=== PATIENT | female | born 1960 | race American Indian/Alaskan Native ===

== ENCOUNTER 2016-11-26 00:46 | Emergency (ER) | payer OTHER ==
[2016-11-26 00:59] VITALS: BP 139/85
[2016-11-26] MEDS ORDERED: TYLENOL PO ONE (00:59)
[2016-11-26] MEDS ORDERED: TYLENOL ONE (00:59)
[2016-11-26 01:38] LABS: Basophils % (Auto) 0.5 % (0.0-1.8); Eosinophils % (Auto) 6.1 % (0.0-4.3); Hematocrit 41.2 % (30.3-42.9); Hemoglobin 13.8 gm/dl (10.1-14.3); Mean Corpuscular HGB Conc 33 % (30-34); Mean Corpuscular Hemoglobin 30 pg (28-32); Mean Corpuscular Volume 90 fl (79-97); Platelet Count 267 K/mm3 (140-440); Red Blood Count 4.59 M/mm3 (3.65-5.03); Red Cell Distribution Width 14.2 % (13.2-15.2); White Blood Count 5.9 K/mm3 (4.5-11.0)
[2016-11-26 02:00] LABS: Alanine Aminotransferase 24 units/L (7-56); Albumin 4.2 g/dL (3.9-5); Albumin/Globulin Ratio 1.1 %; Alkaline Phosphatase 107 units/L (35-129); Anion Gap 22 mmol/L; BUN/Creatinine Ratio 7.77; Blood Urea Nitrogen 7 mg/dL (7-17); Calcium 9.3 mg/dL (8.4-10.2); Carbon Dioxide 21 mmol/L (22-30); Chloride 101.4 mmol/L (98-107); Glucose 100 mg/dL (65-100); Lipase 20 units/L (13-60); Potassium 4.6 mmol/L (3.6-5.0); Sodium 140 mmol/L (137-145); Total Protein 7.9 g/dL (6.3-8.2)
[2016-11-26] MEDS ORDERED: ZOFRAN IV ONE (06:06)
[2016-11-26] MEDS ORDERED: NORCO 10/325 PO ONE (06:07)
--- NOTE | 2016-11-26 06:12 | Emergency Department Report ---
ED Abdominal Pain HPI - General Chief Complaint: Abdominal Pain Stated Complaint: STOMACH PAIN Time Seen by Provider: 11/26/16 05:42 Source: patient Mode of arrival: Ambulatory Limitations: No Limitations - History of Present Illness Initial Comments: Patient is a 56-year-old female presents with generalized abdominal pain that's been going on for the last week. The pain is generalized and is an achy type of pain it is intermittent. Vomiting makes the pain worse and nothing makes it better. It doesn't radiate anywhere associated symptoms are vomiting and diarrhea. She states that she was seen at [facility] emergency department for abdominal pain. She got a CT scan abdominal ultrasound. And she was diagnosed with colitis. She was given antibiotics and Bentyl however she states that her abdominal pain has gotten worse. She also states that she vomits up some of her medication. Patient denies having any fevers or chills. Severity scale (0 -10): 10 - Related Data Previous Rx's Medication Instructions Recorded Last Taken Type Ondansetron [Zofran Odt] 4 mg PO Q8HR PRN #15 tab.rapdis 11/26/16 Unknown Rx traMADol [Ultram 50 MG tab] 50 mg PO Q6HR PRN #13 tablet 11/26/16 Unknown Rx Allergies Allergy/AdvReac Type Severity Reaction Status Date / Time No Known Allergies Allergy Verified 11/26/16 00:51 ED Review of Systems ROS: Stated complaint: STOMACH PAIN Other details as noted in HPI Constitutional: denies: chills, fever Eyes: denies: eye pain, eye discharge, vision change ENT: denies: ear pain, throat pain Respiratory: denies: cough, shortness of breath, wheezing Cardiovascular: denies: chest pain, palpitations Endocrine: no symptoms reported Gastrointestinal: abdominal pain, nausea, vomiting, diarrhea Genitourinary: denies: urgency, dysuria, discharge Musculoskeletal: denies: back pain, joint swelling, arthralgia Skin: denies: rash, lesions Neurological: denies: headache, weakness, paresthesias Psychiatric: denies: anxiety, depression Hematological/Lymphatic: denies: easy bleeding, easy bruising ED Past Medical Hx - Past Medical History Previous Medical History?: Yes Additional medical history: COLITIS - Surgical History Past Surgical History?: No - Social History Smoking Status: Never Smoker Substance Use Type: None - Medications Home Medications: Home Medications Medication Instructions Recorded Confirmed Last Taken Type Ondansetron [Zofran Odt] 4 mg PO Q8HR PRN #15 tab.rapdis 11/26/16 Unknown Rx traMADol [Ultram 50 MG tab] 50 mg PO Q6HR PRN #13 tablet 11/26/16 Unknown Rx ED Physical Exam - General Limitations: No Limitations General appearance: alert, in no apparent distress - Head Head exam: Present: atraumatic, normocephalic - Eye Eye exam: Present: normal appearance - ENT ENT exam: Present: mucous membranes moist - Neck Neck exam: Present: normal inspection - Respiratory Respiratory exam: Present: normal lung sounds bilaterally. Absent: respiratory distress - Cardiovascular Cardiovascular Exam: Present: regular rate, normal rhythm. Absent: systolic murmur, diastolic murmur, rubs, gallop - GI/Abdominal GI/Abdominal exam: Present: soft, tenderness. Absent: distended - Extremities Exam Extremities exam: Present: normal inspection - Back Exam Back exam: Present: normal inspection - Neurological Exam Neurological exam: Present: alert, oriented X3, CN II-XII intact - Psychiatric Psychiatric exam: Present: normal affect, normal mood - Skin Skin exam: Present: warm ED Course Vital Signs 11/26/16 00:51 Temperature 98.5 F Pulse Rate 53 L Respiratory 22 Rate Blood Pressure 139/85 O2 Sat by Pulse 99 Oximetry - Reevaluation(s) Reevaluation #1: 11/26/16 06:11 Reevaluated the patient her laboratory findings are within the normal limits I will give her one oral dose of Belle and then I will give an IV dose of Zofran. Also patient home with tramadol to take home with. ED Medical Decision Making - Lab Data Result diagrams: 11/26/16 01:07 11/26/16 01:07 Lab Results 11/26/16 11/26/16 Range/Units 01:07 01:07 WBC 5.9 (4.5-11.0) K/mm3 RBC 4.59 (3.65-5.03) M/mm3 Hgb 13.8 (10.1-14.3) gm/dl Hct 41.2 (30.3-42.9) % MCV 90 (79-97) fl MCH 30 (28-32) pg MCHC 33 (30-34) % RDW 14.2 (13.2-15.2) % Plt Count 267 (140-440) K/mm3 Lymph % (Auto) 25.9 (13.4-35.0) % Brule % (Auto) 6.9 (0.0-7.3) % Eos % (Auto) 6.1 H (0.0-4.3) % Baso % (Auto) 0.5 (0.0-1.8) % Lymph # 1.5 (1.2-5.4) K/mm3 Brule # 0.4 (0.0-0.8) K/mm3 Eos # 0.4 (0.0-0.4) K/mm3 Baso # 0.0 (0.0-0.1) K/mm3 Seg Neutrophils % 60.6 (40.0-70.0) % Seg Neutrophils # 3.6 (1.8-7.7) K/mm3 Sodium 140 (137-145) mmol/L Potassium 4.6 (3.6-5.0) mmol/L Chloride 101.4 (98-107) mmol/L Carbon Dioxide 21 L (22-30) mmol/L Anion Gap 22 mmol/L BUN 7 (7-17) mg/dL Creatinine 0.9 (0.7-1.2) mg/dL Estimated GFR > 60 ml/min BUN/Creatinine Ratio 7.77 % Glucose 100 (65-100) mg/dL Calcium 9.3 (8.4-10.2) mg/dL Total Bilirubin 0.30 (0.1-1.2) mg/dL AST 23 (5-40) units/L ALT 24 (7-56) units/L Alkaline Phosphatase 107 (35-129) units/L Total Protein 7.9 (6.3-8.2) g/dL Albumin 4.2 (3.9-5) g/dL Albumin/Globulin Ratio 1.1 % Lipase 20 (13-60) units/L - Medical Decision Making Chief medical diagnosis: Colitis Differential medical diagnosis: Hyponatremia, hypokalemia, gastritis CBC, CMP, IV antiemetics, po trial Due the patient's clinical symptoms she likely has colitis exacerbation. Her laboratory findings are within the normal limits. She also got a CT scan and abdominal ultrasound earlier on this week. Her symptoms based on her vital signs do not require any further radiological imaging. Due to the risk of IV contrast and CT radiation. Discussed plan with patient I will send patient home with oral Zofran and I will also send patient home with a small amount of tramadol. Critical care attestation.: If time is entered above; I have spent that time in minutes in the direct care of this critically ill patient, excluding procedure time. ED Disposition Clinical Impression: Colitis Abdominal pain Qualifiers: Abdominal location: generalized Qualified Code(s): R10.84 - Generalized abdominal pain Nausea & vomiting Qualifiers: Vomiting type: unspecified Vomiting Intractability: non-intractable Qualified Code(s): R11.2 - Nausea with vomiting, unspecified Diarrhea Qualifiers: Diarrhea type: infectious Qualified Code(s): A09 - Infectious gastroenteritis and colitis, unspecified Disposition: TO HOME OR SELFCARE Is pt being admited?: No Does the pt Need Aspirin: No Condition: Stable Instructions: Abdominal Pain (ED), Infectious Colitis (ED) Prescriptions: Ondansetron [Zofran Odt] 4 mg PO Q8HR PRN #15 tab.rapdis PRN Reason: Nausea traMADol [Ultram 50 MG tab] 50 mg PO Q6HR PRN #13 tablet PRN Reason: Pain Referrals: PRIMARY CARE, [Primary Care Provider] - 3-5 Days Time of Disposition: 06:56
== END 2016-11-26 07:00 | disposition home or self-care (01) ==
LOC: ED 00:46
DX: K52.9 Noninfective gastroenteritis and colitis, unspecified (principal)
CPT/HCPCS: 36415; 80053; 83690; 85025; 96374; 99283; J2405

== ENCOUNTER 2019-06-28 17:34 | Emergency (ER) | payer OTHER ==
[2019-06-28 20:41] VITALS: BP 111/69
--- NOTE | 2019-06-28 20:50 | Emergency Department Report ---
ED ENT HPI - General Chief complaint: Upper Respiratory Infection Stated complaint: ELEVATED TEMP/SORE THROAT Time Seen by Provider: 06/28/19 20:44 Source: patient Mode of arrival: Ambulatory Limitations: No Limitations - History of Present Illness Initial comments: This is a 59-year-old female nontoxic well in appearance with no signs of distress presents to the ED with complaint of sore throat and subjective fever. Patient denies any drooling or hoarseness. Patient denies any other symptoms. Denies any fever, chills, headache, nausea, vomiting, chest pain or SOB. Denies any other complaints. MD complaint: sore throat -: days(s) Location: throat Severity: mild Severity scale (0 -10): 8 Quality: aching Consistency: constant Improves with: none Worsens with: swallowing Associated Symptoms: pain with swallowing, sore throat. denies: fever, cough, gum swelling, toothache, tinnitus, hearing loss, discharge from ear, rhinorrhea - Related Data Previous Rx's Medication Instructions Recorded Last Taken Type Ondansetron [Zofran Odt] 4 mg PO Q8HR PRN #15 tab.rapdis 11/26/16 Unknown Rx traMADoL [Ultram 50 MG tab] 50 mg PO Q6HR PRN #13 tablet 11/26/16 Unknown Rx Azithromycin [Zithromax Z-JENNIFER] 250 mg PO DAILY #6 tablet 06/28/19 Unknown Rx Allergies Allergy/AdvReac Type Severity Reaction Status Date / Time No Known Allergies Allergy Verified 11/26/16 00:51 ED Dental HPI - General Chief complaint: Upper Respiratory Infection Stated complaint: ELEVATED TEMP/SORE THROAT Time Seen by Provider: 06/28/19 20:44 Source: patient Mode of arrival: Ambulatory Limitations: No Limitations - Related Data Previous Rx's Medication Instructions Recorded Last Taken Type Ondansetron [Zofran Odt] 4 mg PO Q8HR PRN #15 tab.rapdis 11/26/16 Unknown Rx traMADoL [Ultram 50 MG tab] 50 mg PO Q6HR PRN #13 tablet 11/26/16 Unknown Rx Azithromycin [Zithromax Z-JENNIFER] 250 mg PO DAILY #6 tablet 06/28/19 Unknown Rx Allergies Allergy/AdvReac Type Severity Reaction Status Date / Time No Known Allergies Allergy Verified 11/26/16 00:51 ED Review of Systems ROS: Stated complaint: ELEVATED TEMP/SORE THROAT Other details as noted in HPI Constitutional: denies: chills, fever Eyes: denies: eye pain, eye discharge, vision change ENT: throat pain. denies: ear pain Respiratory: denies: cough, shortness of breath, wheezing Cardiovascular: denies: chest pain, palpitations Endocrine: no symptoms reported Gastrointestinal: denies: abdominal pain, nausea, diarrhea Genitourinary: denies: urgency, dysuria, discharge Musculoskeletal: denies: back pain, joint swelling, arthralgia Skin: denies: rash, lesions Neurological: denies: headache, weakness, paresthesias Psychiatric: denies: anxiety, depression Hematological/Lymphatic: denies: easy bleeding, easy bruising ED Past Medical Hx - Past Medical History Previous Medical History?: Yes Additional medical history: COLITIS - Surgical History Past Surgical History?: No - Social History Smoking Status: Never Smoker Substance Use Type: None - Medications Home Medications: Home Medications Medication Instructions Recorded Confirmed Last Taken Type Ondansetron [Zofran Odt] 4 mg PO Q8HR PRN #15 tab.rapdis 11/26/16 Unknown Rx traMADoL [Ultram 50 MG tab] 50 mg PO Q6HR PRN #13 tablet 11/26/16 Unknown Rx Azithromycin [Zithromax Z-JENNIFER] 250 mg PO DAILY #6 tablet 06/28/19 Unknown Rx ED Physical Exam - General Limitations: No Limitations General appearance: alert, in no apparent distress - Head Head exam: Present: atraumatic, normocephalic - Expanded ENT Exam Expanded Ear exam: Present: normal external inspection Mouth exam: Present: normal external inspection, tongue normal. Absent: drooling, trismus, muffled voice Teeth exam: Present: normal inspection Throat exam: Positive: tonsillar erythema, other (uvula midline). Negative: tonsillomegaly, tonsillar exudate, R peritonsillar mass, L peritonsillar mass - Neck Neck exam: Present: normal inspection, full ROM. Absent: tenderness, meningismus, lymphadenopathy - Respiratory Respiratory exam: Present: normal lung sounds bilaterally. Absent: respiratory distress, wheezes, rales, rhonchi, stridor, chest wall tenderness, accessory muscle use, decreased breath sounds, prolonged expiratory - Cardiovascular Cardiovascular Exam: Present: regular rate, normal rhythm, normal heart sounds. Absent: bradycardia, tachycardia, irregular rhythm, systolic murmur, diastolic murmur, rubs, gallop - Extremities Exam Extremities exam: Present: full ROM - Back Exam Back exam: Present: normal inspection, full ROM - Neurological Exam Neurological exam: Present: alert, oriented X3, normal gait - Psychiatric Psychiatric exam: Present: normal affect, normal mood - Skin Skin exam: Present: warm, dry, intact, normal color. Absent: rash ED Course Vital Signs 06/28/19 18:10 Temperature 98.8 F Pulse Rate 87 Respiratory 20 Rate Blood Pressure 111/69 O2 Sat by Pulse 96 Oximetry - Reevaluation(s) Reevaluation #1: 06/28/19 20:47 Patient is speaking in full sentences with no signs of distress noted. ED Medical Decision Making - Medical Decision Making Patient was instructed to Follow-up with a primary care doctor in 3-5 days or if symptoms worsen and continue return to emergency room as soon as possible. At time of discharge, the patient does not seem toxic or ill in appearance. No acute signs of distress noted. Patient agrees to discharge treatment plan of care. No further questions noted by the patient. Critical care attestation.: If time is entered above; I have spent that time in minutes in the direct care of this critically ill patient, excluding procedure time. ED Disposition Clinical Impression: Pharyngitis Qualifiers: Pharyngitis/tonsillitis etiology: unspecified etiology Qualified Code(s): J02.9 - Acute pharyngitis, unspecified Disposition: DC-01 TO HOME OR SELFCARE Is pt being admited?: No Does the pt Need Aspirin: No Condition: Stable Instructions: Pharyngitis (ED) Additional Instructions: Follow-up with a primary care doctor in 3-5 days or if symptoms worsen and continue return to emergency room as soon as possible. Prescriptions: Azithromycin [Zithromax Z-JENNIFER] 250 mg PO DAILY #6 tablet Referrals: DEVANG BOND MD [Referring] - 3-5 Days GIOVANNI KRUEGER MD [Staff Physician] - 3-5 Days [facility] [Outside] - 3-5 Days Forms: Work/School Release Form(ED)
== END 2019-06-28 20:45 | disposition home or self-care (01) ==
LOC: ED 17:34
DX: J02.9 Acute pharyngitis, unspecified (principal)
CPT/HCPCS: 99282